=== PATIENT | female | born 1980 ===

== ENCOUNTER 2024-02-04 12:07 | Outpatient (CLI) | payer OTHER, SELFPAY ==
--- NOTE | ~2024-02-04 | XR_ITS ---
Right foot Technique: AP, oblique, and lateral views were obtained. Clinical History: Pain Findings: No acute fracture or dislocation is seen. Osseous alignment is anatomic. Joint spaces are p reserved without erosive or degenerative change. Plantar calcaneal spur present. There is extensive e nthesopathic calcification at the Achilles tendon insertion. Impression: Severe enthesopathic change/calcification at the Achilles tendon insertion. Consider Achilles tendini tis. Plantar calcaneal spur. Reviewed, dictated and finalized at location M. Impression: Severe enthesopathic change/calcification at the Achilles tendon insertion. 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 Plantar calcaneal spur.
== END 2024-02-04 12:08 | disposition home or self-care (01) ==
PROVIDERS: Visit Provider Orthopaedic Surgery
DX: M77.31 Calcaneal spur, right foot (principal)
CPT/HCPCS: 73630